=== PATIENT | female | born 1965 ===

== ENCOUNTER → 2017-12-10 | Outpatient (CLI) | payer OTHER | END | disposition home or self-care (01) | LOC: HKI 16:25 | DX: M23.222 Derangement of posterior horn of medial meniscus due to old tear or injury, left knee (principal); M79.641 Pain in right hand | CPT/HCPCS: 73130; 73130-RT; 73562-LT ==

== ENCOUNTER → 2018-07-08 | Outpatient (CLI) | payer OTHER | END | disposition home or self-care (01) | LOC: HKI 13:48 | DX: M23.222 Derangement of posterior horn of medial meniscus due to old tear or injury, left knee (principal) | CPT/HCPCS: Z7500 ==